=== PATIENT | male | born 1970 | race Caucasian/White ===

== ENCOUNTER 2018-03-03 12:46 | Inpatient (IN) | payer OTHER ==
--- NOTE | 2018-03-03 13:20 | EDPHY ---
H & P Time Seen by Provider: 03/03/18 13:19 HPI/ROS: CHIEF COMPLAINT: Chest discomfort HISTORY OF PRESENT ILLNESS: Patient had symptoms on mid day, substernal chest discomfort with some tightness and mild dizziness lasted for 6- 8 hours. Was okay the next day and then yesterday all day had recurrence of symptoms, central chest tightness not helped by ibuprofen and radiating into both sides of his neck into his jaw. In the middle of last night it got a lot worse and was At least an hour of symptoms. Today presents with some residual symptoms, his jaw feels okay and his neck feels okay but he still has a little bit of chest tightness. Not associated with cough or fever. No leg swelling or leg pain. No dizziness or syncope. Symptoms were severe last night normal very mild now. REVIEW OF SYSTEMS: Eye: no change in vision ENT: no sore throat Cardiac: HPI Pulmonary: no cough or SOB Abdomen: no vomiting, diarrhea, abdominal pain Musculoskeletal: Chronic right shoulder pain for couple of months which is unchanged Skin: no rash Neuro: no headache Constitutional: no fever : no urinary symptoms A comprehensive 10 point review of systems is otherwise negative aside from elements mentioned in the history of present illness. PAST MEDICAL HISTORY: Dietary high cholesterol and hypertension Family history: Positive for high cholesterol, negative for venous thromboembolism or premature coronary disease. Social history: Nonsmoker, travels a lot, in the entertainment business General Appearance: Alert and conversant, cooperative. Eyes: No scleral icterus. ENT, Mouth: Normal mucous membranes. Respiratory: Normal respiratory effort, breath sounds equal, lungs are clear to auscultation. Cardiovascular: Regular rate and rhythm. Gastrointestinal: Abdomen is soft and non tender. Neurological: Alert, face symmetric, normal motor and sensory in extremities. Skin: Warm and dry, no rashes. Musculoskeletal: No peripheral edema. Psychiatric: Not agitated. Emergency Department course/MDM: Troponin resulted at 3.69. Oral aspirin. Nitroglycerin drip. Discussed with Dr. Carter at 1:41 p.m. Who will come to the ED to see the patient. Smoking Status: Never smoked Constitutional: Initial Vital Signs Temperature (C) 37.2 C 03/03/18 12:49 Heart Rate 78 03/03/18 12:49 Respiratory Rate 18 03/03/18 12:49 Blood Pressure 174/110 H 03/03/18 12:49 O2 Sat (%) 97 03/03/18 12:49 O2 Delivery Mode Room Air Allergies/Adverse Reactions: milk Allergy (Verified 03/03/18 12:54) Milk Containing Products Allergy (Verified 03/03/18 12:54) Penicillins Allergy (Verified 03/03/18 12:53) Home Medications: Medication Instructions Recorded Candesartan/Hydrochlorothiazid 1 each PO DAILY 03/03/18 [Candesartan-Hctz 32-25 mg Tab] Herbals/Supplements -Info Only 1 ea PO DAILY 03/03/18 Multivitamins [Multivitamin (*)] 1 each PO DAILY 03/03/18 Medical Decision Making - Diagnostics EKG Interpretation: 12-lead EKG interpreted by me; official reading is in computer system. My interpretation is sinus rhythm rate 74, borderline left axis, no ischemic changes. Imaging Results: Imaging Impressions Chest X-Ray 03/03/18 13:19 Impression: Normal AP chest x-ray. Chest x-ray personally interpreted negative for mediastinal widening or CHF. Imaging: I viewed and interpreted images myself Differential Diagnosis: Differential diagnosis considered for chest pain including but not limited to myocardial ischemia, aortic dissection, pericarditis, pulmonary embolus, chest wall pain, pleural inflammation and pulmonary infectious causes. Critical Care Time: Critical care time spent by me, Dr. Powell, exclusively with the care of this patient was 30 minutes, exclusive of PA or CRANE OILER time and exclusive of separate procedures. The organ system at risk was cardiovascular and I ordered multiple diagnostics, oral aspirin, IV nitroglycerin, specialist consultation to stabilize the patient and prevent worsening of the patient's condition. - Data Points Laboratory Results: Laboratory Results 03/03/18 13:16 03/03/18 13:16 03/03/18 03/03/18 03/03/18 13:23 13:16 13:16 WBC 9.84 10^3/uL H 10^3/uL (3.80-9.50) RBC 5.29 10^6/uL 10^6/uL (4.40-6.38) Hgb 16.3 g/dL g/dL (13.7-17.5) Hct 47.1 % % (40.0-51.0) MCV 89.0 fL fL (81.5-99.8) MCH 30.8 pg pg (27.9-34.1) MCHC 34.6 g/dL g/dL (32.4-36.7) RDW 12.5 % % (11.5-15.2) Plt Count 267 10^3/uL 10^3/uL (150-400) MPV 9.5 fL fL (8.7-11.7) Neut % (Auto) 70.4 % % (39.3-74.2) Lymph % (Auto) 18.1 % % (15.0-45.0) [place] % (Auto) 8.9 % % (4.5-13.0) Eos % (Auto) 1.3 % % (0.6-7.6) Baso % (Auto) 0.8 % % (0.3-1.7) Nucleat RBC Rel Count 0.0 % % (0.0-0.2) Absolute Neuts (auto) 6.92 10^3/uL H 10^3/uL (1.70-6.50) Absolute Lymphs (auto) 1.78 10^3/uL 10^3/uL (1.00-3.00) Absolute Monos (auto) 0.88 10^3/uL H 10^3/uL (0.30-0.80) Absolute Eos (auto) 0.13 10^3/uL 10^3/uL (0.03-0.40) Absolute Basos (auto) 0.08 10^3/uL 10^3/uL (0.02-0.10) Absolute Nucleated RBC 0.00 10^3/uL 10^3/uL (0-0.01) Immature Gran % 0.5 % % (0.0-1.1) Immature Gran # 0.05 10^3/uL 10^3/uL (0.00-0.10) Sodium 136 mEq/L mEq/L (135-145) Potassium 4.1 mEq/L mEq/L (3.5-5.2) Chloride 104 mEq/L mEq/L (97-110) Carbon Dioxide 23 mEq/l mEq/l (22-31) Anion Gap 9 mEq/L mEq/L (6-14) BUN 18 mg/dL mg/dL (7-23) Creatinine 0.9 mg/dL mg/dL (0.7-1.3) Estimated GFR > 60 Glucose 117 mg/dL H mg/dL (70-100) Calcium 9.6 mg/dL mg/dL (8.5-10.4) POC Troponin I 3.69 ng/mL H ng/mL (0.00-0.08) Medications Given: Discontinued Medications Aspirin (Aspirin) 324 mg PO EDNOW ONE Stop: 03/03/18 13:37 Last Admin: 03/03/18 13:42 Dose: 324 mg Nitroglycerin/Dextrose (Nitroglycerin 200 Mcg/Ml (Premix)) 250 mls @ 0 mls/hr IV CONT ONE; Titrate PRN Reason: Protocol Stop: 03/03/18 13:40 Last Admin: 03/03/18 13:42 Dose: 250 mls Sodium Chloride (Ns) 250 mls @ 0 mls/hr IV ONCE ONE PRN Reason: Wide Open Stop: 03/03/18 14:27 Last Admin: 03/03/18 14:27 Dose: 250 mls Point of Care Test Results: Chemistry 03/03/18 13:23 POC Troponin I 3.69 ng/mL H ng/mL (0.00-0.08) Departure - Departure Disposition: [facility] Inpatient Acute Clinical Impression: ACS (acute coronary syndrome) Condition: Good
--- NOTE | 2018-03-03 13:21 | CPEKG ---
Test Reason : OPEN Blood Pressure : / mmHG Vent. Rate : 074 BPM Atrial Rate : 074 BPM P-R Int : 151 ms QRS Dur : 092 ms QT Int : 396 ms P-R-T Axes : 048 -21 008 degrees QTc Int : 440 ms Sinus rhythm Borderline left axis deviation Confirmed by Ganga Powell ([id number]) on 03/03/2018 1:20:38 PM Referred By: Confirmed By:Ganga Powell
[2018-03-03 13:35] LABS: PLATELET COUNT 267 10^3/uL (150-400)
[2018-03-03] MEDS ORDERED: ASPIRIN 81 MG CHEWABLE TAB ONE (13:35)
[2018-03-03] MEDS ORDERED: ASPIRIN 81 MG CHEWABLE TAB PO ONE (13:36)
[2018-03-03] MEDS ORDERED: NITROGLYCERIN/DEXTROSE 250 ML IV ONE (13:39)
[2018-03-03] MEDS ORDERED: NS 250 ML IV ONE (14:26)
[2018-03-03] MEDS ORDERED: fentaNYL 100 MCG/2 ML INJ ONE ×2 (14:35→15:24)
[2018-03-03] MEDS ORDERED: LIDOCAINE 1% 300 MG/30 ML SDV ONE (14:35)
[2018-03-03] MEDS ORDERED: HEPARIN 10,000 UNIT/10 ML MDV (1,000 UNIT/ML) ONE (14:36)
[2018-03-03] MEDS ORDERED: VERAPAMIL 5 MG/2 ML VIAL ONE (14:36)
[2018-03-03] MEDS ORDERED: IOPAMIDOL (ISOVUE-370) 150 ML BTL IV ONE (14:36)
[2018-03-03] MEDS ORDERED: MIDAZOLAM 2 MG/2 ML VIAL ONE ×2 (14:36→15:24)
[2018-03-03] MEDS ORDERED: TEMAZEPAM 15 MG CAP PO PRN (14:45)
--- NOTE | 2018-03-03 14:48 | PDPROPOC ---
Sedation Plan of Care Sedation Plan of Care: vital signs stable, mental status noted, patient educated of risks, benefits, alternatives, patient can tolerate sedation ASA Classification: ASA 1 Planned drugs: fentanyl, midazolam Mallampati Score: Class 2 Mallampati Reference Image: Patient passed 3-3-2 rule?: Yes
--- NOTE | 2018-03-03 14:53 | GHP ---
DATE OF ADMISSION: 03/03/2018 REASON FOR ADMISSION: Acute coronary syndrome. HISTORY: The patient is a 47-year-old male with no prior cardiac history. He is visiting relatives in [place]. He resides in [place], [place]. On after snowboarding, he began to experience some chest tightness. It subsided but reoccurred each of the past 2 days. It was worse yesterday and included some radiation to the jaw. He had mild ongoing chest discomfort even into the psychiatric cns hours today. This morning, he began to experience radiation to the jaw again and decided to seek medical attention. In the emergency room, his ECG does not demonstrate any acute ischemic changes. However, his troponin is elevated at 3.69. PAST MEDICAL HISTORY: He has a history of hypertension which is currently treated. He recently had laboratory testing with his PCP. He recalls that his total cholesterol was 240 with triglycerides of 440. PAST SURGICAL HISTORY: None. MEDICATIONS: 1. Candesartan 32 mg daily. 2. Hydrochlorothiazide 25 mg daily. ALLERGIES: He had an allergic reaction to penicillin in childhood. He does not recall the specifics. FAMILY HISTORY: There is no family history of premature CAD. His father has hyperlipidemia. SOCIAL HISTORY: He is . He has 1 child. His and family are with him in [place]. He has never been a smoker. He works as a sales producer/director. REVIEW OF SYSTEMS: Apart from the issues mentioned in the history of present illness, a 10-point review was negative. PHYSICAL EXAMINATION: VITALS: Blood pressure 166/114. Heart rate 85 with sinus rhythm on the monitor. O2 saturation 96% on 2 L/minute nasal cannula oxygen. GENERAL: The patient is a well-developed, well-nourished male in no acute distress. He is alert and oriented x3. HEAD AND NECK: No scleral icterus. Mucous membranes moist. Carotid pulses 2+ without bruits. There is no JVD. CHEST: Lung arita clear to auscultation. CARDIAC: Regular rate and rhythm with a normal S1 and S2. No murmur or gallop. ABDOMEN: Soft, nontender , nondistended with normal bowel sounds. EXTREMITIES: 2+ pulses and no peripheral edema. An Roel test on the right wrist was normal at less than 5 seconds. ECG: His ECG demonstrates normal sinus rhythm. He has borderline left axis deviation. There are no Q-waves or conduction system disturbance. There are no ST-T wave changes indicative of acute ischemia. LABORATORY STUDIES: Sodium 136, potassium 4.1, BUN and creatinine 18 and 0.9. Troponin is 3.69. His CBC is normal. IMPRESSION: This is a 47-year-old male with hypertension and hyperlipidemia, who presents with symptoms and laboratory tests consistent with an acute coronary syndrome. He is hemodynamically stable and does not demonstrate any evidence of congestive heart failure. He has had stuttering, waxing/waning symptoms over the past 48-72 hours. PLAN: I discussed the probable underlying issues of CAD with the patient and his . Preparations are underway to take the patient urgently to the cardiac catheterization lab for diagnostic angiography and probable PCI. I expect he will require a hospital stay of greater than 2 midnights for care of his acute coronary syndrome/NSTEMI. /[id number]/MODL MTDD
--- NOTE | 2018-03-03 14:56 | PDHPUP ---
History & Physical Update H&P update statement: This history and physical update is based on an assessment of the patient which was completed after admission or registration (within 24 hours), but prior to the surgery/procedure. H&P update: H&P reviewed & patient examined, no change in patient's condition since H&P completed
[2018-03-03] MEDS ORDERED: NITROGLYCERIN 1,500 MCG/15 ML VIAL MISC ONE (15:30)
[2018-03-03] MEDS ORDERED: CLOPIDOGREL BISULFATE 75 MG TAB ONE (16:02)
[2018-03-03] MEDS ORDERED: ONDANSETRON 4 MG/2 ML VIAL IVP PRN (16:29)
[2018-03-03] MEDS ORDERED: CLOPIDOGREL BISULFATE 75 MG TAB PO ONE (16:29)
[2018-03-03] MEDS ORDERED: ATROPINE SULFATE 1 MG/10 ML SYR IVP PRN (16:29)
[2018-03-03] MEDS ORDERED: LORazepam 2 MG/ML INJ IVP PRN (16:29)
[2018-03-03] MEDS ORDERED: ACETAMINOPHEN 325 MG TAB PO PRN (16:29)
[2018-03-03] MEDS ORDERED: HYDROCODONE/APAP 5/325 TAB PO PRN (16:29)
[2018-03-03] MEDS ORDERED: NITROGLYCERIN 0.4 MG BTL SL PRN (16:29)
[2018-03-03] MEDS ORDERED: NS 1,000 ML IV SCH (16:30)
--- NOTE | 2018-03-03 16:44 | PDDXCAT ---
Diagnostic Cath Note - . Date: 03/03/18 Hand Packager: Raul Indication: other (Acute Coronary Syndrome) - Procedure Access: right wrist Procedure: left heart catheterization, coronary angiography, left ventriculogram , other (PCI of Cicumflex) - Materials Left Heart Cath size: 5F Left Heart Cath materials: other (TIG, JL 3.5, and Pigtail) - Findings-Left Heart Catheterization LM: Normal. LAD: The proximal LAD has a focal 30% stenosis. The remainder of the LAD and its diagonal branches demonstrate minimal atherosclerotic irregularities. LCX: Minimal atherosclerotic irregularities in the proximal circumflex and first obtuse marginal branch. The mid-circumflex demonstrates a focal stenosis > 90%. RCA: Diffuse minimal atherosclerosis throughout the proximal, mid, and distal RCA. There is a focal 30-40% stenosis just prior to the final posterolateral branch. EDP: 22 mmHg LVEF: 65% Wall motion: Normal. Complications: None Estimated blood loss: <50ml Closure method: TR Band Assessment: 1) Acute coronary syndrome secondary to high-grade stenosis of the mid-circumflex. Otherwise [id number]-[id number] coronary atherosclerosis as described above. 2) Successful percutaneous coronary intervention of the mid- circumflex using a single drug-coated stent. Normal left ventricular systolic function without regional wall motion abnormalities. Intervention: Based on the patient's clinical history and diagnostic angiography, the decision was made to perform PCI of the mid-circumflex. The patient received 3000 units of intravenous heparin in addition to the 5000 units which had been given at the beginning of the procedure. A 6 Tajik CLS 3.5 guide catheter was advanced to the left main ostium. An Intuition guidewire was advanced into the distal circumflex. Predilatation of the target lesion was performed using a 2.0 x 12 mm Emerge balloon. A 2.5 x 16 mm Synergy drug-coated stent was then advanced into position and was deployed at high pressure. Final angiograms demonstrated 0% residual stenosis and EVELYN-III flow. Patient Problems: Problems Problem Status Onset ACS (acute coronary syndrome) Acute
--- NOTE | 2018-03-03 17:48 | PDMN ---
Medical Necessity Medical necessity: Pt meets inpt criteria per MD order and MCG M 40, angina. 47 y/o w/hx HTN and hyperlipidemia presents w/ongoing chest discomfort w/radiation into jaw and elev troponin at 3.69- symptoms consistent w/acute coronary syndrome requiring urgent cardiac cath w/intervention: PCI of mid-circumflex, balloon angioplasty/stent.
--- NOTE | 2018-03-03 18:58 | CPEKG ---
Test Reason : OPEN Blood Pressure : / mmHG Vent. Rate : 077 BPM Atrial Rate : 077 BPM P-R Int : 148 ms QRS Dur : 088 ms QT Int : 392 ms P-R-T Axes : 053 -20 -03 degrees QTc Int : 444 ms Sinus rhythm Borderline left axis deviation Confirmed by Ganga Powell ([id number]) on 03/03/2018 6:58:09 PM Referred By: Confirmed By:Ganga Powell
[2018-03-03] MEDS: METOPROLOL TARTRATE 25 MG TAB PO SCH (21:14)
[2018-03-04] MEDS: CLOPIDOGREL BISULFATE 75 MG TAB PO SCH (08:36)
[2018-03-04] MEDS: ATORVASTATIN CALCIUM 40 MG TAB PO SCH (08:36)
[2018-03-04] MEDS: METOPROLOL TARTRATE 25 MG TAB PO SCH ×2 (08:36→20:13)
[2018-03-04] MEDS: ASPIRIN EC 325 MG TAB PO SCH (08:36)
[2018-03-04] MEDS ORDERED: CANDESARTAN PO SCH (09:00)
[2018-03-04] MEDS ORDERED: HYDROCHLOROTHIAZID PO SCH (09:00)
--- NOTE | 2018-03-04 12:37 | PDCARPN ---
Cardiology Progress Note Chief Complaint: Patient reports fatigue. Assessment/Plan: Assessment: 47-year-old male with history of hypertension, but no other significant cardiac history. Resides in [facility], visiting [place] over holiday for family. Developing worsening chest pressure starting on , with recurrence over multiple times over past 2 days. Seen in emergency department 03/03/2018, with ECG demonstrating no acute ischemic changes, however troponin elevation of 3.69. Taken urgently to cardiac catheterization lab by Dr. Carter noting to have vpjz-kr-pixsihqg disease in both LAD and RCA , non flow limiting. Patient noted with a greater than 90% stenosis in mid circumflex. PCI done, with a 2.5 x 16 synergy EDGAR implantation with no complications. LV-gram noting no wall motion abnormalities, LVEF of 65%, EDP of 22 mm Hg. Patient started on dual anti-platelet therapy of aspirin and clopidogrel, metoprolol tartrate, and resumed on home doses of Candesartan/HCTZ. 03/04/2018: Patient reporting no chest pain, pressure, or symptoms of ischemia throughout the evening. Continuous cardiac monitoring showing sinus Kike/ sinus rhythm overnight. With no malignant arrhythmias or pauses. Patient noted to be hypertensive since procedure, with most recent BP of 157/99. Patient had been noted to be bradycardic with rates down into the 50. Electrocardiogram done this a.m. Showing sinus rhythm, with no significant ST or T-wave abnormalities. Preliminary of echocardiogram done this morning showing normal LV systolic function with no wall motion abnormalities. Laboratory studies did note postprocedure of a troponin elevation up to 10.00, this a.m. 9.180. Fasting lipid panel showing triglycerides of 439, total cholesterol 193, HDL 24, LDL cannot be calculated. Plan: 1. NSTEMI/CAD: Status post PCI with EDGAR implantation of circumflex. No chest pain or pressure or symptoms suggesting of ischemia throughout the night. Patient has been started on beta-karyn, continued on home dose are. He is on anti-platelet therapy of aspirin 325 mg p. O. Q.day and clopidogrel of 75 mg p.o. Q.day. Will plan for him to stay on high dose aspirin for 1 month, then reduced to 81 mg p.o. Q.day. He should remain on anti-platelet therapy Plavix for at least 1 year post EDGAR implantation. He is less than 24 hr from procedure , will plan for him to stay 1 more night, due at high risk of arrhythmia post ND within the 1st 48 hr. 2. Hyperlipidemia: Status post ND, triglycerides to high to calculate LDL. Patient has been started on atorvastatin for secondary risk prevention. He should have repeated fasting lipid and liver panel done in 8 weeks time for re- evaluation. 3. Hypertension: Patient noted hypertensive since procedure, despite being resumed on home dose Candesartan/HCTZ and metoprolol. Noted at points to be bradycardia with beta-karyn. Will start him on amlodipine 5 mg p.o. Q.day. Patient is plan to go back to [place] for follow-up. His informed me that he is being scheduled to see a marketing copywriter in [place] for follow-up as soon as they arrived back home within the next week. I have asked staff to make a packet of all his procedure reports, and carpenter/labor and echo have made CDs for patient to take home with him. Post PCI teaching Done with patient and . 03/04/18 12:34 Subjective: He denies of any chest pressure, pain, SOB, palpitations, lightheadedness, near- syncope or syncopal events. Reviewed/Discussed With: other (Dr Womack and Dr Galeano) Time Spent with Patient: greater than 25 minutes Time Spent with Patient: Greater than 25 minutes spent on this patients care, greater than 50% of time spent counseling, educating, and coordinating care regarding the above mentioned plan. Objective: Vital Signs (8 Hrs) Temp Pulse Resp BP Pulse Ox 03/04/18 07:22 36.8 C 66 12 157/99 H 96 Intake/Output (24 Hrs) 03/03/18 03/04/18 03/05/18 05:59 05:59 05:59 Intake Total 3100 Output Total 3075 Balance 25 Intake: Oral (ml) 2250 IV Infused (ml) 850 Ns 1,000 ml @ 100 mls/hr 600 IV CONT MELIZA Rx#: [id number] Output: Urine (ml) 3075 Urinal 3075 Other: Weight 108.862 kg Number of Voids 1 Result Diagrams: 03/03/18 13:16 03/04/18 04:21 Cardiac Labs: Cardiac Lab Results (72 Hrs) 03/04/18 03/03/18 04:21 21:07 Troponin I 9.180 H 10.000 H - Physical Exam Constitutional: no apparent distress, obese (Moderate) Ears, Nose, Mouth, Throat: moist mucous membranes Cardiovascular: regular rate and rhythm, no murmurs, no rubs, no gallops, pulses symmetric bilat, No jugular vein distention, No carotid bruit Peripheral Pulses: 1+: dorsalis-pedis (R), dorsalis-pedis (L), 2+: carotid (R), carotid (L) Respiratory: clear to auscultate bilat, no crackles, no wheezes Gastrointestinal: normoactive bowel sounds, no tenderness, no masses Skin: warm, no edema, other (Right wrist site, catheter insertion site, without redness, swelling, bleeding, or hematoma. Normal CMS check to right hand. +2 radial pulse.) Neurologic: AAOx3 Psychiatric: cooperative, interactive, following commands ICD10 Worksheet Patient Problems: Problems Problem Status Onset ACS (acute coronary syndrome) Acute
--- NOTE | 2018-03-04 12:55 | ECHO ---
[email or web address] [address] Main: [phone] Fax: [email or web address] Echocardiogram Name: SOFÍA PALOMINO MR#: [id number] Study Date: 03/04/2018 Study Time: 10:48 AM Date of : 1970 Age: 47 year(s) Height: 175.3 cm (69 in.) Weight: 108.86 kg (240 lb.) BSA: 2.23 m2 Gender: Male Examination: Echo Indication: Post Cath Image Quality: Contrast: Requested by: Cordell Carter BP: 157 mmHg/99 mmHg Heart Rate: Rhythm: Normal sinus rhythm Indication: Post Cath Procedure Staff Reinforcing Steel Erector: Jose Alejandro Trammell RDCS Reading Physician: Shakira Womack MD Requesting Provider: Conclusions: Normal size left ventricle. No LV hypertrophy. Normal global systolic LV function. EF is 68 %. No regional wall motion abnormality. Normal size right ventricle. Normal RV function. No pericardial effusion. No significant valvular disease. No prior echo Measurements: Chambers Valvular Assessment AV/MV Valvular Assessment TV/PV Normal Normal Normal Name Value Range Name Value Range Name Value Range Ao Chelly (MM): 3.5 cm (2.2 cm-3.7 AV Vmax: 1.26 m/s (1 m/s-1.7 PV Vmax: 0.88 m/s (0.6 m/s-0.9 cm) m/s) m/s) IVSd (2D): 1.0 cm (0.6 cm-1.1 AV maxP mmHg ( - ) PV PGmax: 3 mmHg ( - ) cm) LVOT Vmax: 0.86 m/s (0.7 m/s-1.1 LVDd (2D): 4.6 cm (4.2 cm-5.9 m/s) cm) MV E Vmax: 0.68 m/s ( - ) LVDs (2D): 2.8 cm (2.1 cm-4 MV A Vmax: 0.47 m/s ( - ) cm) MV E/A: 1.45 ( - ) LVPWd (2D): 1.2 cm (0.6 cm-1 cm) LVEF (2D): 68 (>=54 %) Continued Measurements: Chambers Valvular Assessment AV/MV Name Value Name Value Patient: SOFÍA PALOMINO Study Date: 03/04/2018 Page 1 of 2 10:48 AM LADs Lon.1 cm MV E' Septal: 0.10 m/s LA Area: 17.3 cm2 MV E/E' Septal: 6.90 LA Volume: 48 ml MV E/E' Lateral: 7.00 LA Volume Index: 21.5 ml/m2 Findings: Left Ventricle: Normal size left ventricle. No LV hypertrophy. Normal global systolic LV function. EF is 68 %. No regional wall motion abnormality. Right Ventricle: Normal size right ventricle. Normal RV function. Left Atrium: The left atrium is normal in size. Right Atrium: The right atrium is normal in size. Mitral Valve: The mitral valve is normal in appearance and function. There is no significant mitral valve regurgitation. Aortic Valve: The aortic valve is tri-leaflet. The aortic valve is normal in appearance. There is no significant aortic valve regurgitation. No aortic valve stenosis is present. Tricuspid Valve: The tricuspid valve is normal in appearance and function. There is no significant tricuspid valve regurgitation. Pulmonic Valve: The pulmonic valve is normal in appearance and function. Aorta: The aorta is normal. Pericardium: No pericardial effusion. (No Signature Object) Patient: SOFÍA PALOMINO Study Date: 03/04/2018 Page 2 of 2 10:48 AM [id number]
[2018-03-04] MEDS: amLODIPine BESYLATE 5 MG TAB PO SCH (13:36)
[2018-03-04] MEDS: HYDROCHLOROTHIAZIDE 25 MG TAB PO SCH (14:29)
[2018-03-04] MEDS: CANDESARTAN CILEXETIL 32 MG PO SCH (14:29)
[2018-03-05 08:18] VITALS: BP 142/59
[2018-03-05] MEDS: amLODIPine BESYLATE 5 MG TAB PO SCH (08:33)
[2018-03-05] MEDS: ASPIRIN EC 325 MG TAB PO SCH (08:33)
[2018-03-05] MEDS: METOPROLOL TARTRATE 25 MG TAB PO SCH (08:33)
[2018-03-05] MEDS: HYDROCHLOROTHIAZIDE 25 MG TAB PO SCH (08:34)
[2018-03-05] MEDS: CANDESARTAN CILEXETIL 32 MG PO SCH (08:34)
[2018-03-05] MEDS: ATORVASTATIN CALCIUM 40 MG TAB PO SCH (08:34)
[2018-03-05] MEDS: CLOPIDOGREL BISULFATE 75 MG TAB PO SCH (08:34)
--- NOTE | 2018-03-05 10:01 | ASDISCHSUM ---
Discharge Information Plan Status:Home with No Needs Medically Cleared to Leave:03/04/2018 Discharge Date:03/04/2018 CM D/C Disposition:Home, Routine, Self-Care ADT D/C Disposition:Home, Routine, Self-Care Projected Discharge Date:03/05/2018 12:00 AM Transportation at D/C:Family Discharge Delay Reason: Follow-Up Date:03/05/2018 12:00 AM Discharge Slot: Final Diagnosis: Placement Information Patient Contact Information Contact Name:DEEPA Relationship: Address:[address] Work Phone: City:[place] [facility] Phone: State/Zip Code:[place] [address] Email: Financial Information Financial Class:[facility] Primary Plan Desc:ELSY [facility]ONTENEGRO [facility] Primary Plan Number:[id number] Secondary Plan Desc: Secondary Plan Number: Assessment Information Case Management Discharge Plan Note Case Management Discharge Discharge Order Complete? Answers: Yes Patient to Obtain Answers: via Family Medications Transportation Arranged Answers: Family/Friends Discharge Comments Notes: CM spoke at length with pt about his concerns regarding insurance and cost of hospital stay. Cm provided education about financial counseling and speaking with insurance about concerns. Pt reports his family is here in town with him and he has no concerns with transportation or obtaining food. No other CM needs identified. Date Signed: 03/05/2018 09:59 AM Electronically Signed By:MYNOR Gomez LACSerafin LACSerafin Length of stay for Answers: 1 day current admission Acuity / Level of Answers: Yes Care: Did the patient have an inpatient admission? Comorbidities - select Answers: Other Notes: HTN all that apply # of Emergency department Answers: 0 visits in the last 6 months Score: 5 Date Signed: 03/05/2018 10:00 AM Electronically Signed By:MYNOR Gomez Intervention Information
--- NOTE | 2018-03-05 12:04 | GDS ---
ADMISSION DIAGNOSES: 1. Non-ST elevation myocardial infarction. 2. Hypertension. 3. Dyslipidemia. DISCHARGE DIAGNOSES: 1. Non-ST elevation myocardial infarction, status post drug-eluting stent [facility]. Peak troponin 10. 2. Hypertension. 3. Dyslipidemia. PROCEDURES DURING HOSPITALIZATION: 1. Serial EKGs: Sinus rhythm with small inferolateral Q-waves. 2. Echocardiogram: Normal LV size and systolic function without significant valvular disease. 3. Coronary angiography with Dr. Cordell Carter: Proximal LAD with focal 50% stenosis. Mid circumf angelina with focal stenosis of greater than 90%. RCA with diffuse ilcn-fb-rmldpihn disease, including a focal 30% to 40% stenosis prior to the final posterolateral branch. Preserved ejection fraction appe ared elevated, EDP at 22 mmHg. Patient underwent pre-dilation of the mid circumflex lesion with a 2. 0 x 12 mm Emerge balloon, followed by implantation of a 2.5 x 16 mm Synergy drug-eluting stent. 0% r esidual stenosis. HOSPITAL COURSE: The patient is a 47-year-old male with a history of dyslipidemia and treated hypert ension. He is in [facility], resides in [place], [place]. While sn owboarding over the past week, he developed substernal chest discomfort. This waxed and waned over t he course of the next couple of days and he ultimately presented to the [facility]. Initial EKG did not show acute ischemic changes, but his first troponin was 3.69 ; therefore, he was taken to the cardiac catheterization lab by Dr. Cordell Carter. Please see above for details of cath report. The patient did well post-catheterization. He was observed in the hospital for 36 additional hours. No arrhythmia on telemetry. No recurrent angina, no evidence of heart failure. He is ambulating in the halls without difficulty. No complications at his right radial arteriotomy site. DISCHARGE PHYSICAL EXAM: VITAL SIGNS: Blood pressure 142/59, which is an improvement compared with admission, heart rate 62, oxygen saturation 97% on room air. He is afebrile. GENERAL: Well-appeari ng middle-aged male in no acute distress. HEART: Regular rate and rhythm without murmur or gallop. LUNGS: Clear to auscultation bilaterally. No wheeze, rhonchi, or rales. EXTREMITIES: No lower ex tremity edema. Minimal ecchymoses around the right radial arteriotomy site with intact radial pulse and normal capillary refill of the fingers. No tenderness to palpation. LABORATORY DATA: White count slightly elevated at 9.84, normal hematocrit and platelets. Normal bas ic metabolic panel. Peak troponin 10.0, follow up troponin 9.18. Triglycerides 439, HDL 24, LDL cou ld not be calculated due to elevated triglycerides. DISCHARGE MEDICATIONS: Tylenol 650 mg p.o. q.4 hours p.r.n. pain, amlodipine 5 mg daily, aspirin 325 mg daily, Lipitor 40 mg daily, Plavix 75 mg daily, Lopressor 25 mg b.i.d., nitroglycerin p.r.n., hyd rochlorothiazide 25 mg daily, Atacand 32 mg daily. DISCHARGE INSTRUCTIONS/FOLLOWUP: 1. The patient will be discharged home with his family in [place] in stable condition. He plans to stay in the area through March 07. 2. He will establish care with a corporate aircraft mechanic in either [place] or [place]. I would recommend t hat he be enrolled in cardiac rehab. 3. Take all medications as prescribed. The importance of uninterrupted dual antiplatelet therapy wa s emphasized with the patient. He does report that when previously on Norvasc, he had some leg swell ing after couple of weeks. Would consider switching to spironolactone once he is back in [place], I did not want to change him now due to the need for close renal function electrolyte monitoring. 4. He was started on atorvastatin this admission. Would recommend repeat lipids in 8 to 12 weeks. Dietary interventions to improve triglycerides were also reviewed. He may ultimately require pharmac ological therapy for his elevated triglycerides. Greater than 30 minutes was spent in coordination of care, chart review, image review, direct patient contact. /[id number]/MODL
--- NOTE | 2018-03-06 08:21 | CPEKG ---
Test Reason : OPEN Blood Pressure : / mmHG Vent. Rate : 075 BPM Atrial Rate : 075 BPM P-R Int : 144 ms QRS Dur : 093 ms QT Int : 405 ms P-R-T Axes : 051 -03 006 degrees QTc Int : 453 ms Sinus rhythm Confirmed by Aureliano Urbina ([id number]) on 03/06/2018 8:21:10 AM Referred By: Confirmed By:Aureliano Urbina
== END 2018-03-05 11:19 | disposition home or self-care (01) | DRG 247 ==
LOC: F2W 17:15
PROVIDERS: ADMIT Internal Medicine Interventional Cardiology; ATTEND Internal Medicine Interventional Cardiology
PROC: 027034Z Dilation of Coronary Artery, One Artery with Drug-eluting Intraluminal Device, Percutaneous Approach (ICD-10-PCS; principal; 2018-03-03)
DX: I21.4 Non-ST elevation (NSTEMI) myocardial infarction (principal); I10 Essential (primary) hypertension; E78.5 Hyperlipidemia, unspecified
CPT/HCPCS: 84484-ER; 96365; 96366; C1725; C1769; C1874; C1887; C9600; J1644; J2250; J3010; Q9967